=== PATIENT | male | born 1945 | race Caucasian/White ===

== ENCOUNTER 2016-09-21 21:21 | Emergency (ER) | payer OTHER, MEDICARE ==
[~2016-09-21 21:21] MED LIST: ASPIRIN EC81 M1 PO; CANDESARTAN-HC1 EAC1 PO; FUROSEMIDE20 M1 PO; METOPROLOL TART25 M1 PO; SAVAYSA PO
[2016-09-21 21:51] LABS: ABSOLUTE BASOPHIL COUNT 0 /CUMM (0.0-0.2); ABSOLUTE EOSINOPHIL COUNT 0.7 /CUMM (0.0-0.7); ABSOLUTE GRANULOCYTE CT 2.9 /CUMM (1.4-6.5); ABSOLUTE LYMPH COUNT 1.5 /CUMM (1.2-3.4); ABSOLUTE MONOCYTE COUNT 0.5 /CUMM (0.10-0.60); BASOPHIL % 0.6 % (0.0-2.0); EOSINOPHIL % 12.3 % (0-5); GRANULOCYTE % 51.7 % (42.2-75.2); MEAN CORPUSCULAR HGB 31.4 PG (27.0-31.0); MEAN CORPUSCULAR HGB CONC 33.4 G/DL (33.0-37.0); MEAN CORPUSCULAR VOLUME 94.1 FL (80.0-94.0); MEAN PLATELET VOLUME 7.8 FL (7.4-10.4); PLATELET COUNT 239 /CUMM (130-400); RBC DISTRIBUTION WIDTH 14.8 % (11.5-14.5); RED BLOOD CELL CT 4.35 /CUMM (4.70-6.10); WHITE BLOOD CELL COUNT 5.7 /CUMM (4.8-10.8)
[2016-09-21 21:57] LABS: PT 11.8 SEC (9.4-12.5)
--- NOTE | 2016-09-21 22:14 | CT SCAN REPORT ---
EXAMINATION: CT HEAD WITHOUT CONTRAST CLINICAL INFORMATION: Speech difficulty. Assess for stroke. 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 COMPARISON: None. TECHNIQUE: Contiguous axial imaging was performed from the skull base to vertex without intravenous administration of contrast. DLP: 681.5 mGy-cm FINDINGS: There is equivocal loss of garcía-white differentiation with low density in the left frontoparietal region (images 35-39/72). It may be consistent with an area of evolving infarction or edema/gliosis from prior intracranial metastasis. There is no evidence of hemorrhage. There is minimal distortion of the posterior body of the left lateral ventricle. No midline shift is seen. García to white matter differentiation elsewhere is well preserved. No extra-axial fluid collections are identified. The ventricles are normal in size. Brain parenchymal signal elsewhere is unremarkable. The osseous structures and soft tissues are normal. The mastoid air cells are well-aerated. There a small retention cysts in the bilateral ethmoid sinuses. IMPRESSION: 1. There is an area of low attenuation in the left frontoparietal region as described above. It may be consistent with an evolving infarct versus sequelae of brain metastasis. An acute infarct cannot be excluded on the basis of this study. 2. There are no bleeds, fluid collections or midline shift. 3. This critical result was discussed with Jayme Nur by telephone on 09/21/2016 10:09 PM and it was ascertained that the content and urgency of the report was understood at the time of direct communication.
[2016-09-21 22:26] VITALS: BP 145/90
--- NOTE | 2016-09-21 22:49 | ED GENERAL ADULT ---
History of Present Illness General Chief Complaint: Neuro Symptoms/ Deficit Stated Complaint: WORD APHASIA, CONFUSION Source: patient Exam Limitations: poor historian, physical impairment Vital Signs & Intake/Output Vital Signs & Intake/Output Vital Signs Date Time Temp Pulse Resp B/P B/P Pulse O2 O2 Flow FiO2 Mean Ox Delivery Rate 09/21 2225 97.6 74 14 145/90 95 Room Air 09/211 96.7 83 20 189/114 Allergies Coded Allergies: No Known Allergies (12/06/15) Reconcile Medications Aspirin (Ecotrin*) 81 MG TABLET.DR 1 TAB PO DAILY HEART HEALTH (Reported) Candesartan/Hydrochlorothiazid (Candesartan-Hctz 32-25 MG Tab) 1 EACH TABLET 1 TAB PO DAILY HEART (Reported) Edoxaban Tosylate (Savaysa) 60 MG TABLET 1 TAB PO DAILY UNKNOWN (Reported) Furosemide 20 MG TABLET 1 TAB PO DAILY WATER PILL (Reported) Metoprolol Tartrate 25 MG TABLET 1 TAB PO BID HEART (Reported) Triage Note: PER DIFF SPEAKING X 90 MINUTES PT SPEECH AGNIESZKAD, HAD GAMMA KNIFE SURGERY IN JULY AND TUMOR REMOVED FROM KIDNEY IN AUGUST PT HAS NO HTN HX BUT IS HYPERTENSIVE IN TRIAGE Triage Nurses Notes Reviewed? yes Onset: Abrupt Duration: hour(s): Timing: single episode today HPI: 09/21/16 The patient was seen on arrival 71-year-old man presents to the emergency department for altered mental status. 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 He is currently being transitioned off of Keppra and onto Divalproex. He is followed at [facility] The onset of the symptoms were abrupt, the duration was approximately 90 minutes prior to arrival The severity is significant as his symptoms required him to come to the emergency department for care A tele-stroke onset was requested. I spoke with Dr. Small who is in agreement that the patient is not a TPA candidate but he would be better served with transfer to [facility] for MRI and admission. I spoke with Dr. Bazzi who accepted the patient for transfer with the patient being brought to the [facility] ED. Past History Travel History Traveled to [place] past 21 day No Medical History Any Pertinent Medical History? 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 No Review of Systems Review of Systems Constitutional: Denies: fever. EENTM: Denies: visual changes. Respiratory: Denies: short of breath. Cardiovascular: Denies: chest pain. GI: Denies: abdominal pain. Genitourinary: Reports: no symptoms. Musculoskeletal: Reports: no symptoms. Skin: Denies: rash. Neurological/Psychological: Reports: confusion. Immunologic/Allergic: Reports: no symptoms. Physical Exam Physical Exam General Appearance: alert, awake, anxious, moderate distress Head: atraumatic, normal appearance Eyes: Bilateral: normal appearance, PERRL, EOMI. Ears, Nose, Throat: normal pharynx, normal ENT inspection Neck: normal inspection, supple Respiratory: normal breath sounds, chest non-tender, no respiratory distress Cardiovascular: regular rate/rhythm Peripheral Pulses: 4+ radial (R), 4+ radial (L) Gastrointestinal: soft, non-tender Back: decreased range of motion Extremities: no edema Neurologic/Psych: awake, alert, positive gag reflex. I would not tolerate water at this time. He's confused, there is no focal weakness Skin: intact, normal color, warm/dry Core Measures ACS in differential dx? No CVA/TIA Diagnosis: Yes NIH Stroke Scale: Total 7 Dt/Tm Last Known Well: Yes Date Last Known Well: 09/21/16 Neurological S/S of CVA: Acute Confusion, Incoherent Speech Symptom start date: 09/21/16 Reason tPA not ordered: Medical Contraindication Severe Sepsis Present: No Septic Shock Present: No Progress Differential Diagnoses I considered the following diagnoses in my evaluation of the patient: [Seizure, metastatic disease to the brain, intracranial bleed, CVA] Plan of Care: Orders Procedure Date/time Status URINALYSIS 09/21 2222 Active CULTURE,URINE 09/21 2221 Active PROTHROMBIN TIME 09/21 2138 Complete COMPREHENSIVE METABOLIC PANEL 09/21 2138 Complete CBC WITHOUT DIFFERENTIAL 09/21 2138 Complete Laboratory Tests 09/21/162229: Urine Color YEL, Urine Clarity CLEAR, Urine pH 6.0, Ur Specific Coleman 1.025, Urine Protein NEG, Urine Ketones TRACE H, Urine Nitrite NEG, Urine Bilirubin NEG, Urine Urobilinogen 0.2, Ur Leukocyte Esterase NEG, Ur Microscopic SEDIMENT EXAMINED, Urine RBC 1-3, Ur Epithelial Cells RARE, Urine Bacteria FEW H, Granular Casts RARE H, Urine Hemoglobin TRACE-INTACT H, Urine Glucose NEG 09/21/162139: Anion Gap 11, Estimated GFR 46 L, BUN/Creatinine Ratio 13.3, Glucose 105 H, Calcium 8.9, Total Bilirubin 0.4, AST 19, ALT 48, Alkaline Phosphatase 51, Total Protein 6.2 L, Albumin 3.8, Globulin 2.4, Albumin/Globulin Ratio 1.6, PT 11.8, INR 1.13, CBC w Diff NO MAN DIFF REQ, RBC 4.35 L, MCV 94.1 H, MCH 31.4 H, RDW 14.8 H, MPV 7.8, Gran % 51.7, Lymphocytes % 25.8, Monocytes % 9.6 H, Eosinophils % 12.3 H, Basophils % 0.6, Absolute Granulocytes 2.9, Absolute Lymphocytes 1.5, Absolute Monocytes 0.5, Absolute Eosinophils 0.7, Absolute Basophils 0, PUBS MCHC 33.4 Microbiology 09/21 2229 URINE ROUT: Urine Culture - RECD Initial ED EKG: pending Departure Departure Disposition: OTHER [facility] (ACUTE) Condition: Stable Clinical Impression Primary Impression: Altered mental status Referrals: JOHN ACEVES DO (PCP/Family) Departure Forms: Customer Survey General Discharge Information Comments Patient was transferred to [facility] for further care PATIENT: SELENA VICK PRESENT AGE: 71 PATIENT ACCOUNT NO: [id number] : 45 LOCATION: [facility] [place] ORDERING PHYSICIAN: KURT RANGEL MD SERVICE DATE: 09/21/16 EXAM TYPE: CAT - CT HEAD WO IV CONTRAST EXAMINATION: CT HEAD WITHOUT CONTRAST CLINICAL INFORMATION: Speech difficulty. Assess for stroke. 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 COMPARISON: None. TECHNIQUE: Contiguous axial imaging was performed from the skull base to vertex without intravenous administration of contrast. DLP: 681.5 mGy-cm FINDINGS: There is equivocal loss of garcía-white differentiation with low density in the left frontoparietal region (images 35-39/72). It may be consistent with an area of evolving infarction or edema/gliosis from prior intracranial metastasis. There is no evidence of hemorrhage. There is minimal distortion of the posterior body of the left lateral ventricle. No midline shift is seen. García to white matter differentiation elsewhere is well preserved. No extra-axial fluid collections are identified. The ventricles are normal in size. Brain parenchymal signal elsewhere is unremarkable. The osseous structures and soft tissues are normal. The mastoid air cells are well-aerated. There a small retention cysts in the bilateral ethmoid sinuses. IMPRESSION: 1. There is an area of low attenuation in the left frontoparietal region as described above. It may be consistent with an evolving infarct versus sequelae of brain metastasis. An acute infarct cannot be excluded on the basis of this study. 2. There are no bleeds, fluid collections or midline shift. 3. This critical result was discussed with Jayme Nur by telephone on 09/21/2016 10:09 PM and it was ascertained that the content and urgency of the report was understood at the time of direct communication. DICTATED BY: JODI WEISS MD DATE/TIME DICTATED:09/21/162201 CAMPUS DIRECTOR:CONCETTA DATE/TIME TRANSCRIBED:09/21/162201 CONFIDENTIAL, DO NOT COPY WITHOUT APPROPRIATE AUTHORIZATION. <Electronically signed in Other Vendor System> SIGNED BY: JODI WEISS MD 09/21/16 7324 Critical Care Note Critical Care Note Critical Care Time: 30-74 min
== END 2016-09-21 22:52 | disposition short-term general hospital (02) ==
LOC: ERH 21:21
PROVIDERS: Emergency Medicine
DX: R41.82 Altered mental status, unspecified (principal)
CPT/HCPCS: 81001; 87086

== ENCOUNTER 2017-06-13 19:18 | Emergency (ER) | payer OTHER, MEDICARE ==
[~2017-06-13] VITALS: Ht 177.8 cm; Wt 95.3 kg
[2017-06-13 21:44] LABS: ABSOLUTE BASOPHIL COUNT 0 /CUMM (0.0-0.2); ABSOLUTE EOSINOPHIL COUNT 0 /CUMM (0.0-0.7); ABSOLUTE GRANULOCYTE CT 7.4 /CUMM (1.4-6.5); ABSOLUTE LYMPH COUNT 1.4 /CUMM (1.2-3.4); BASOPHIL % 0.5 % (0.0-2.0); EOSINOPHIL % 0.5 % (0-5); GRANULOCYTE % 75.1 % (42.2-75.2); HEMATOCRIT 38.2 % (42-52); MEAN CORPUSCULAR HGB 35.2 PG (27.0-31.0); MEAN CORPUSCULAR HGB CONC 33.4 G/DL (33.0-37.0); MEAN CORPUSCULAR VOLUME 105.4 FL (80.0-94.0); MEAN PLATELET VOLUME 7.5 FL (7.4-10.4); PLATELET COUNT 290 /CUMM (130-400); RBC DISTRIBUTION WIDTH 15.4 % (11.5-14.5); RED BLOOD CELL CT 3.62 /CUMM (4.70-6.10); WHITE BLOOD CELL COUNT 9.9 /CUMM (4.8-10.8)
[2017-06-13 21:59] LABS: PT 11.7 SEC (9.4-12.5); PTT 34 SEC (25-37)
[2017-06-13 22:21] VITALS: BP 111/78
--- NOTE | 2017-06-13 22:38 | ULTRASOUND REPORT ---
EXAMINATION: US TRIPLEX LOWER EXTREMITY, RIGHT CLINICAL INFORMATION: Edema. Pain. COMPARISON: None TECHNIQUE: Color-flow triplex imaging with spectral analysis and compression Doppler were performed on the lower extremity. FINDINGS: Respiratory variation, normal compression and augmented flow are noted throughout the lower extremity. The visualized common femoral vein, superficial femoral vein, profunda femoral vein, popliteal vein and midcalf peroneal and posterior tibial venous segments show no evidence of deep venous thrombosis. There is no Khan's cyst. IMPRESSION: Normal triplex scan without evidence of deep venous thrombosis involving the lower extremity.
--- NOTE | 2017-06-13 22:48 | ED GENERAL ADULT ---
History of Present Illness General Chief Complaint: General Adult Stated Complaint: SIB AT [facility] FOR ULTRASOUND Source: patient, family, old records, Epic Exam Limitations: no limitations Vital Signs & Intake/Output Vital Signs & Intake/Output Vital Signs Date Time Temp Pulse Resp B/P B/P Pulse O2 O2 Flow FiO2 Mean Ox Delivery Rate 06/13 2220 97.6 70 18 111/78 97 Room Air 06/13 2014 97.5 104 18 129/92 96 Room Air Allergies Coded Allergies: No Known Allergies (12/06/15) Reconcile Medications Aspirin (Ecotrin*) 81 MG TABLET.DR 1 TAB PO DAILY HEART HEALTH (Reported) Candesartan/Hydrochlorothiazid (Candesartan-Hctz 32-25 MG Tab) 1 EACH TABLET 1 TAB PO DAILY HEART (Reported) Edoxaban Tosylate (Savaysa) 60 MG TABLET 1 TAB PO DAILY UNKNOWN (Reported) Furosemide 20 MG TABLET 1 TAB PO DAILY WATER PILL (Reported) Metoprolol Tartrate 25 MG TABLET 1 TAB PO BID HEART (Reported) Triage Note: PT FROM HOME C/O RIGHT LEG PAIN 5/10 SINCE THIS MORNING. PTS STATES PT HAD A PE 5.5 WEEKS AGO AND CURRENTLY ON LOVENOX, THIS MORNING PTS STATE PT COMPLAINED OF RIGHT LEG PAIN, PTS MEDICATED PT WITH TYLENOL WHICH SUBSIDED THE PAIN. PTS STATED THEY CAME HOME FROM AN MD APPT AND THE RIGHT LEG WAS SWOLLEN AND RED IN CALF AREA. PTS SENT IN BY MD FOR US TO RULE OUT CLOT. VSS, AFEBRILE. Triage Nurses Notes Reviewed? yes Onset: Morning Duration: hour(s):, constant, continues in ED, getting worse Timing: recent history Injury Environment: home Severity: moderate Modifying Factors: Improves With: medication. Worsens With: movement. HPI: 1 day prior to admission family noted increasing swelling to right calf and leg. Pain improved with Tylenol. He is currently on Lovenox for PE. Denies fever chills nausea vomiting diarrhea abdominal pain chest pain shortness breath headache dysuria rash bleeding. Past History Travel History Traveled to [place] past 21 day No Medical History Any Pertinent Medical History? 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 No Review of Systems Review of Systems Constitutional: Reports: no symptoms. EENTM: Reports: no symptoms. Respiratory: Reports: no symptoms. Cardiovascular: Reports: no symptoms. GI: Reports: no symptoms. Genitourinary: Reports: no symptoms. Musculoskeletal: Reports: see HPI, muscle pain. Skin: Reports: no symptoms. Neurological/Psychological: Reports: no symptoms. Hematologic/Endocrine: Reports: no symptoms. Immunologic/Allergic: Reports: no symptoms. All Other Systems: Reviewed and Negative Physical Exam Physical Exam General Appearance: well developed/nourished, alert, awake, anxious, mild distress Head: atraumatic, normal appearance Eyes: Bilateral: normal appearance, PERRL, EOMI. Ears, Nose, Throat: normal pharynx, normal ENT inspection, hearing grossly normal, moist mucus membranes Neck: normal inspection, supple, full range of motion, no midline tenderness Respiratory: normal breath sounds, chest non-tender, no respiratory distress, quiet respiration, lungs clear Cardiovascular: regular rate/rhythm, normal peripheral pulses, norml femoral pulses equa Peripheral Pulses: 4+ carotid (R), 4+ carotid (L), 4+ femoral (R), 4+ femoral (L), 1+ dorsalis pedis (R), 1+ dorsalis pedis (L) Gastrointestinal: normal bowel sounds, soft, non-tender, no organomegaly Back: normal inspection, normal range of motion Extremities: normal capillary refill, normal range of motion, pedal edema, swelling, tenderness (right calf) Neurologic/Psych: no motor/sensory deficits, awake, alert, oriented x 3, normal gait, precision assembler 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 Skin: intact, normal color, warm/dry Lymphatic: no anterior cervical manuel Core Measures ACS in differential dx? No CVA/TIA Diagnosis: No Sepsis Present: No Sepsis Focused Exam Completed? No Progress Differential Diagnoses I considered the following diagnoses in my evaluation of the patient: DVT asymmetric edema Plan of Care: Orders Procedure Date/time Status PARTIAL THROMBOPLASTIN TIME 06/13 2050 Complete PROTHROMBIN TIME 06/13 2050 Complete MAGNESIUM 06/13 2050 Complete COMPREHENSIVE METABOLIC PANEL 06/13 2050 Complete CBC WITHOUT DIFFERENTIAL 06/13 2050 Complete Laboratory Tests 06/13/172134: Anion Gap 10, Estimated GFR > 60, BUN/Creatinine Ratio 25.0, Glucose 97, Calcium 9.1, Magnesium 1.8, Total Bilirubin 0.3, AST 13 L, ALT 40, Alkaline Phosphatase 43, Total Protein 5.4 L, Albumin 3.3 L, Globulin 2.1, Albumin/Globulin Ratio 1.6, PT 11.7, INR 1.12, APTT 34, CBC w Diff NO MAN DIFF REQ, RBC 3.62 L, MCV 105.4 H, MCH 35.2 H, MCHC 33.4, RDW 15.4 H, MPV 7.5, Gran % 75.1, Lymphocytes % 13.7 L, Monocytes % 10.2 H, Eosinophils % 0.5, Basophils % 0.5, Absolute Granulocytes 7.4 H, Absolute Lymphocytes 1.4, Absolute Monocytes 1.0 H, Absolute Eosinophils 0, Absolute Basophils 0 Diagnostic Imaging: Viewed by Me: Ultrasound. Discussed w/RAD: Ultrasound. Radiology Impression: no acute abnormality Initial ED EKG: none Departure Departure Time of Disposition: 2246 Disposition: HOME OR SELF CARE Condition: Stable Clinical Impression Primary Impression: Right leg swelling Referrals: Andreia Toth DO (PCP/Family) Additional Instructions: If symptoms persist a repeat ultrasound should be performed in 5-7 days Departure Forms: Customer Survey General Discharge Information Critical Care Note Critical Care Note Critical Care Time: non-applicable
== END 2017-06-13 22:59 ==
LOC: ERH 19:18
PROVIDERS: Emergency Medicine
DX: M79.89 Other specified soft tissue disorders (principal)